=== PATIENT | female | born 1965 | race Two or more races ===

== ENCOUNTER 2018-04-12 19:35 | Emergency (ER) | payer SELFPAY ==
[2018-04-12 19:42] VITALS: BP 145/90
[2018-04-12] MEDS ORDERED: MECLIZINE HCL 25 MG TAB PO ONE (20:07)
[2018-04-12] MEDS ORDERED: AMOXICILLIN/CLAVULANATE POT 875/125 MG TAB PO ONE (20:07)
--- NOTE | 2018-04-12 20:07 | EDPHY ---
H & P Time Seen by Provider: 04/12/18 19:47 HPI/ROS: CHIEF COMPLAINT: Right ear pain, right dental pain and dizziness for 2 days HISTORY OF PRESENT ILLNESS: The patient is a 52-year-old female with history of cervical dystonia and breast cancer currently in remission here with chief complaint of right ear pain, right-sided dental pain and dizziness for 2 days. She states that 2 days ago her clonazepam dose was increased and she started feeling dizzy thereafter. She describes the dizziness as the world spinning which is induced by standing quickly or moving quickly. The dizziness does improve with being stationary. She denies any vision changes, trouble with coordination, history of CVA, chest pain, shortness of breath, palpitations. She has no history of cardiac disease. There was no injury to the head. She denies any fever or chills. REVIEW OF SYSTEMS: Constitutional: No fever, no chills. Eyes: No discharge. ENT: No sore throat. Cardiovascular: No chest pain, no palpitations. Respiratory: No cough, no shortness of breath. Gastrointestinal: No abdominal pain, no vomiting. Genitourinary: No hematuria. Musculoskeletal: No back pain. Skin: No rashes. Neurological: No headache. Smoking Status: Never smoked Physical Exam: General Appearance: Alert and no distress. Eyes: Pupils equal and round no injection. Oral: Diffuse poor dentition with gingival swelling to the right upper buccal mucosa Respiratory: Chest is nontender, lungs are clear to auscultation. Cardiac: regular rate and rhythm. Gastrointestinal: Abdomen is soft and nontender, no masses, bowel sounds normal. Musculoskeletal: Neck is supple and nontender. Extremities have full range of motion and are nontender. Skin: No rashes or lesions. Neuro: Cranial nerves grossly intact. Normal plnbey-ds-[id number] testing. No nystagmus, no ulnar drift. Constitutional: Initial Vital Signs Temperature (C) 37.2 C 04/12/18 19:39 Heart Rate 75 04/12/18 19:39 Respiratory Rate 16 04/12/18 19:39 Blood Pressure 145/90 H 04/12/18 19:39 O2 Sat (%) 98 04/12/18 19:39 O2 Delivery Mode Room Air Allergies/Adverse Reactions: No Known Allergies Allergy (Unverified 04/12/18 19:41) Home Medications: Medication Instructions Recorded Amoxicillin/Clavulanate Pot 875 mg PO BID #14 tab 04/12/18 [Augmentin 875 MG TAB (*)] Meclizine HCl [Meclizine HCl 25 mg 25 mg PO TID PRN #20 tab 04/12/18 (RX,OTC)] Medical Decision Making ED Course/Re-evaluation: 52-year-old female here with multiple complaints. Her ear pain is likely due to cerumen impaction was obvious on her exam. He has no evidence of tympanic membrane perforation, otitis media, mastoiditis on exam. She does have some mild right-sided facial swelling without erythema and this is likely due to chronic trauma to the buccal mucosa from her dystonia. She has no evidence of abscess on exam. She started Augmentin for infection. With regards to her dizziness she has no focal neurologic deficits or red flag symptoms such as double vision or trouble with ambulation or coordination to suggest posterior circulation infarct. Likely due to the medication changes according with inset of her symptoms or due to right middle ear infection. She is treated with meclizine and will decrease her dose of clonazepam and follow up with her primary care physician. - Data Points Medications Given: Discontinued Medications Amoxicillin/Clavulanate Potassium (Augmentin 875mg) 875 mg PO EDNOW ONE PRN Reason: Protocol Stop: 04/12/18 20:08 Last Admin: 04/12/18 20:16 Dose: 875 mg Meclizine HCl (Meclizine Hcl) 25 mg PO ONCE ONE Stop: 04/12/18 20:08 Last Admin: 04/12/18 20:16 Dose: 25 mg Departure - Departure Disposition: Home, Routine, Self-Care Clinical Impression: Peripheral vertigo, Impacted cerumen of right ear, Dental infection Condition: Good Instructions: Dizziness (ED) Additional Instructions: The source of your dizziness may be the increasing in the dose of Klonopin per. Please return to your previous dose from 3 days ago. Call your primary care physician to discuss this further. I'm prescribing you meclizine which you may take as needed for dizziness. If you developed any double vision or trouble with coordination or other worsening symptoms return to the ER for further evaluation. With regard to your ear pain please use Debrox for the next 5 days for cerumen impaction. I'm also prescribing her Augmentin for the infection in mouth. Referrals: NONE *PRIMARY CARE P,. [Primary Care Provider] - As per Instructions [facility],. [Clinic] - As per Instructions Prescriptions: Amoxicillin/Clavulanate Pot [Augmentin 875 MG TAB (*)] 875 mg PO BID #14 tab Meclizine HCl [Meclizine HCl 25 mg (RX,OTC)] 25 mg PO TID PRN #20 tab PRN Reason: Dizziness
== END 2018-04-12 20:25 | disposition home or self-care (01) ==
DX: H81.399 Other peripheral vertigo, unspecified ear (principal); H61.21 Impacted cerumen, right ear; K04.7 Periapical abscess without sinus